=== PATIENT | male | born 1965 | race Caucasian/White ===

== ENCOUNTER 2021-01-09 10:33 | Emergency (ER) | payer SELFPAY ==
[~2021-01-09] VITALS: Ht 180.3 cm; Wt 108.9 kg
[2021-01-09 10:49] VITALS: BP_SYST 150
[2021-01-09 12:32] VITALS: BP_SYST 150
== END 2021-01-09 12:32 | disposition home or self-care (01) ==
LOC: SED 10:33
DX: U07.1 COVID-19 (principal); I10 Essential (primary) hypertension
CPT/HCPCS: 36415; 86710; 99283